=== PATIENT | female | born 1965 | race African-American/Black ===

== ENCOUNTER → 2019-07-17 | Outpatient (CLI) | payer OTHER ==
--- NOTE | 2019-07-18 16:14 | RAD ---
Two-view study left knee AP standing view of both knees Clinical indications: Left knee pain FINDINGS: Total left knee arthroplasty is evident which is well aligned. No acute fracture or lytic process is evident. AP standing view of the right knee demonstrates moderate spurring and mild joint space narrowing of the medial tibiofemoral joint compartment of the right knee IMPRESSION: No acute osseous abnormality. Total left knee orthoplasty. Mild to moderate degenerative osteoarthritis of the medial tibiofemoral joint compartment of the right knee. Electronically signed by: Hiren English MD (07/18/2019 4:11 PM) [facility]
== END | disposition home or self-care (01) ==
LOC: DXRAD 13:13
PROVIDERS: ATTEND Orthopaedic Surgery
DX: M17.11 Unilateral primary osteoarthritis, right knee (principal); M76.891 Other specified enthesopathies of right lower limb, excluding foot; Z96.652 Presence of left artificial knee joint
CPT/HCPCS: 73560; 73565

== ENCOUNTER → 2020-10-15 | Outpatient (CLI) | payer OTHER ==
--- NOTE | 2020-10-15 11:54 | RAD ---
EXAM: Left lower extremity venous Doppler sonogram. HISTORY: Pain and swelling. TECHNIQUE: Hardin scale and color Doppler sonographic evaluation of the left lower extremity veins with spectral waveform analysis was performed. FINDINGS: There is normal color flow, normal compressibility and there are normal spectral waveforms in the common femoral, superficial femoral, popliteal, posterior tibial and greater saphenous veins. IMPRESSION: No Doppler evidence of lower extremity deep venous thrombosis. Electronically signed by: Diana Barnes MD (10/15/2020 11:51 AM) [id number]
== END ==
LOC: US 11:17
PROVIDERS: ATTEND Orthopaedic Surgery
DX: R22.42 Localized swelling, mass and lump, left lower limb (principal)
CPT/HCPCS: 93971